=== PATIENT | male | born 1965 | race Caucasian/White ===

== ENCOUNTER 2021-05-12 14:14 | Outpatient (CLI) | payer BC, SELFPAY ==
--- NOTE | ~2021-05-12 | XR_ITS ---
XR cervical spine 4-5V 05/12/2021 15:33 Indication: Neck pain Procedure: 3 views cervical spine Comparison: No prior studies for comparison. Findings: Vertebral body heights are maintained. No fracture, subluxation or dislocation. No preverte bral soft tissue swelling. Lung apices are normal. There is mild multilevel uncinate degenerative cooper nge. Impression: 1: Mild cervical spondylosis. Reviewed, dictated and finalized at location A. AS MARKER Impression: 1: Mild cervical spondylosis.
--- NOTE | ~2021-05-12 | XR_ITS ---
EXAMINATION: XR abdomen obstructive series DATE: 05/12/2021 15:35 INDICATION: Lower quadrant pain TECHNIQUE: Supine and upright views of the abdomen. FINDINGS: No prior studies for comparison The visualized lung parenchyma is normal.. There is a nonobstructive bowel gas pattern. Gas and stool are seen throughout the colon to the level of the rectum. There is no free air. IMPRESSION: 1. No acute abdominal abnormality. Reviewed, dictated and finalized at location A. 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
--- NOTE | ~2021-05-12 | XR_ITS ---
XR ankle LT min 3V 05/12/2021 15:34 Indication: Left ankle pain medially. Chronic. Procedure: 4 views of the left ankle Comparison: 4 views left ankle Findings: There is an osteochondral defect along the lateral margin of the talar dome. No acute fract ure or traumatic malalignment. No significant soft tissue abnormality. Moderate anterior soft tissue swelling. There are moderate degenerative changes of the ankle. Impression: 1: Moderate osteoarthritis of the left ankle with osteochondral defect lateral margin of the talar do me. Reviewed, dictated and finalized at location A. GER RELIABILITY Impression: 1: Moderate osteoarthritis of the left ankle with osteochondral defect lateral margin of the talar dome.
[2021-05-12 14:48] LABS: Basophils Absolute Auto 0.08 K/mm3 (0.00-0.10); Basophils Percent Auto 0.9 % (0.0-1.0); Eosinophils Absolute Auto 0.39 K/mm3 (0.02-0.50); Eosinophils Percent Auto 4.6 % (1.0-6.0); Hematocrit 51.4 % (40.0-54.0); Hemoglobin 17.3 g/dL (14.0-18.0); Immature Granulocyte Absolute 0.02 K/mm3 (0.00-0.00); Immature Granulocyte Percent A 0.2 % (0.0-0.0); Lymphocytes Absolute Auto 2.88 K/mm3 (1.10-4.50); Lymphocytes Percent Auto 34.2 % (18.0-42.0); Mean Corpuscular HGB Conc 33.7 g/dL (32.0-36.0); Mean Corpuscular Hemoglobin 32.9 pg (27.0-31.0); Mean Corpuscular Volume 97.7 fL (78.0-102.0); Mean Platelet Volume 9.7 fl (8.7-11.0); Monocytes Absolute Auto 0.54 K/mm3 (0.10-0.90); Monocytes Percent Auto 6.4 % (2.0-11.0); Neutrophils Absolute Auto 4.5 K/mm3 (1.7-7.2); Neutrophils Percent Auto 53.7 % (50.0-70.0); Platelet Count Result 338 K/mm3 (150-420); Red Blood Count 5.26 M/mm3 (4.70-6.10); Red Cell Distribution Width 12.9 % (11.6-14.4); White Blood Count 8.4 K/mm3 (4.8-10.8)
[2021-05-12 15:15] LABS: Alanine Aminotransferase 67 U/L (16-63); Albumin Level 4.2 g/dL (3.4-5.0); Alkaline Phosphatase 91 U/L (46-116); Amylase 49 U/L (25-115); Anion Gap 11 mmol/L (8-16); Aspartate Amino Transferase 46 U/L (15-37); Bilirubin,Total 0.4 mg/dL (0.00-1.00); Blood Urea Nitrogen 14 mg/dL (7-18); Calcium 9.2 mg/dL (8.5-10.1); Carbon Dioxide 28 mmol/L (21-32); Chloride 101 mmol/L (98-108); Estimated Glomerular Filt Rate > 60; Glucose 140 mg/dL (70-99); Lipase 98 U/L (73-393); Osmolality Calculated 292 mOsm/kg (285-295); Potassium 4.7 mmol/L (3.5-5.1); Sodium 140 mmol/L (136-145); Total Protein 7.8 g/dL (6.4-8.2)
[2021-05-12 15:53] LABS: Prostate Specific Antigen 1.1 ng/mL (< OR = 4.0)
[2021-05-13 18:07] LABS: Hemoglobin A1C 6.1 % (<5.7)
== END 2021-05-12 14:15 | disposition home or self-care (01) ==
LOC: CHSLAB 14:18
PROVIDERS: PCP Family Medicine; Visit Provider Family Medicine
DX: R10.32 Left lower quadrant pain (principal); Z12.5 Encounter for screening for malignant neoplasm of prostate; M25.572 Pain in left ankle and joints of left foot; M54.2 Cervicalgia
CPT/HCPCS: 36415; 72050; 73610; 74019; 80053; 82150; 83036; 83690; 84153; 85025; G0103

== ENCOUNTER 2021-05-13 15:37 | Outpatient (CLI) | payer BC, SELFPAY ==
[2021-05-13 15:53] LABS: Add Urine Microscopic? NO; Appearance Urine Clear (Clear); Bilirubin Urine Negative (Negative); Blood Urine Negative (Negative); Color Urine Yellow (Yellow); Glucose Urine UA Negative (Negative); Ketones Urine Negative (Negative); Leukocyte Esterase Ur Negative (Negative); Nitrate Urine Negative (Negative); Protein Urine Negative (Negative); Specific Grav Ur >= 1.030 (1.010-1.020); Urobilinogen Urine 0.2 mg/dL (0.2-1.0); pH Urine 5.5 (5.0-8.0)
[2021-05-13 15:54] LABS: Occult Blood Negative (Negative)
== END 2021-05-13 15:38 | disposition home or self-care (01) ==
LOC: CHSLAB 15:38
PROVIDERS: PCP Family Medicine; Visit Provider Family Medicine
DX: R10.32 Left lower quadrant pain (principal); Z12.5 Encounter for screening for malignant neoplasm of prostate
CPT/HCPCS: 81003; 82272

== ENCOUNTER 2021-05-14 10:15 | Outpatient (CLI) | payer BC, SELFPAY ==
--- NOTE | ~2021-05-14 | CT_ITS ---
EXAMINATION: CT lung screening EXAM DATE: 05/14/2021 10:48 INDICATION: Personal history of tobacco use hx tobacco dependence, no chest complaints. Still smokes. TECHNIQUE: Spiral low dose CT of the chest without contrast. Axial, coronal and sagittal images were reviewed. The dose-length product (DLP) for this examination was 321.22 mGy-cm. The exposure was t ailored according to patient size (auto mA exposure control), and iterative reconstruction (ASIR) was used as additional dose reduction technique. There is no prior study for comparison. FINDINGS: There is mild emphysema. Tracheobronchial tree is patent. There is no mediastinal, helen r or axillary lymphadenopathy. There are no pleural or pericardial effusions. There is no pneumot horax. Heart normal in size. There is mild coronary arterial calcification, arterial sclerosis. U pper abdomen is unremarkable. There is thoracic spondylosis without osteoblastic or osteolytic lesi ons identified. IMPRESSION: Lung-RADS category 1, negative (<1%chance of malignancy); recommend continued LDCT screen ing in 1 year. > Reviewed, dictated and finalized at location B. SHER DIAL IMPRESSION: Lung-RADS category 1, negative (<1%chance of malignancy); recommend continued LDCT screening in 1 year. >
[2021-05-14 11:04] LABS: Cholesterol 297 mg/dL (0-200); HDL Direct 44 mg/dL (40-60); LDL Cholesterol Calculated 208 mg/dL (<130); Triglycerides 225 mg/dL (0-150)
== END 2021-05-14 10:16 | disposition home or self-care (01) ==
LOC: CHSIMG 10:16
PROVIDERS: PCP Family Medicine; Visit Provider Family Medicine
DX: Z12.2 Encounter for screening for malignant neoplasm of respiratory organs (principal); Z87.891 Personal history of nicotine dependence; Z13.220 Encounter for screening for lipoid disorders
CPT/HCPCS: 36415; 71271; 80061

== ENCOUNTER 2021-05-19 12:29 | Outpatient (CLI) | payer BC, SELFPAY ==
[2021-05-24 20:15] LABS: Hepatitis A Antibody IgM Nonreactive; Hepatitis B Core Antibody Nonreactive (Nonreactive); Hepatitis B Surface Antigen Nonreactive (Nonreactive); Hepatitis C Signal to Cutoff 0.04 ratio (<1.00); Hepatitis C Virus Antibody Nonreactive (Nonreactive)
== END 2021-05-19 12:30 | disposition home or self-care (01) ==
LOC: CHSLAB 12:31
PROVIDERS: PCP Family Medicine; Visit Provider Family Medicine
DX: R74.01 Elevation of levels of liver transaminase levels (principal)
CPT/HCPCS: 36415; 80074

== ENCOUNTER 2021-09-15 13:12 | Outpatient (CLI) | payer BC, SELFPAY ==
[2021-09-15 13:27] LABS: Add Urine Microscopic? YES; Appearance Urine Clear (Clear); Basophils Absolute Auto 0.09 K/mm3 (0.00-0.10); Bilirubin Urine Negative (Negative); Blood Urine 1+ (Negative); Color Urine Yellow (Yellow); Eosinophils Absolute Auto 0.49 K/mm3 (0.02-0.50); Eosinophils Percent Auto 5.2 % (1.0-6.0); Glucose Urine UA Negative (Negative); Hematocrit 48.9 % (40.0-54.0); Hemoglobin 16.6 g/dL (14.0-18.0); Immature Granulocyte Absolute 0.04 K/mm3 (0.00-0.00); Immature Granulocyte Percent A 0.4 % (0.0-0.0); Ketones Urine Negative (Negative); Leukocyte Esterase Ur Negative (Negative); Lymphocytes Absolute Auto 3.15 K/mm3 (1.10-4.50); Lymphocytes Percent Auto 33.3 % (18.0-42.0); Mean Corpuscular HGB Conc 33.9 g/dL (32.0-36.0); Mean Corpuscular Hemoglobin 32.8 pg (27.0-31.0); Mean Corpuscular Volume 96.6 fL (78.0-102.0); Mean Platelet Volume 9.7 fl (8.7-11.0); Monocytes Absolute Auto 0.67 K/mm3 (0.10-0.90); Monocytes Percent Auto 7.1 % (2.0-11.0); Nitrate Urine Negative (Negative); Platelet Count Result 344 K/mm3 (150-420); Protein Urine Negative (Negative); Red Blood Count 5.06 M/mm3 (4.70-6.10); Red Cell Distribution Width 12.6 % (11.6-14.4); Urobilinogen Urine 0.2 mg/dL (0.2-1.0); White Blood Count 9.5 K/mm3 (4.8-10.8)
[2021-09-15 13:33] LABS: Bacteria Urine None seen /hpf; Squamous Epithelial Cell Urine Rare /hpf (Few); WBC Urine None seen /hpf (0-3)
[2021-09-15 13:35] LABS: Hemoglobin A1C 6.2 % (<5.7)
[2021-09-15 13:52] LABS: Alanine Aminotransferase 49 U/L (16-63); Alkaline Phosphatase 113 U/L (46-116); Anion Gap 7 mmol/L (8-16); Aspartate Amino Transferase 45 U/L (15-37); Bilirubin,Total 0.5 mg/dL (0.00-1.00); Blood Urea Nitrogen 12 mg/dL (7-18); Calcium 9.2 mg/dL (8.5-10.1); Carbon Dioxide 30 mmol/L (21-32); Chloride 99 mmol/L (98-108); Cholesterol 183 mg/dL (0-200); Creatine Kinase 305 U/L (39-308); Estimated Glomerular Filt Rate > 60; Glucose 148 mg/dL (70-99); HDL Direct 40 mg/dL (40-60); LDL Cholesterol Calculated 97 mg/dL (<130); Osmolality Calculated 284 mOsm/kg (285-295); Potassium 3.7 mmol/L (3.5-5.1); Sodium 136 mmol/L (136-145); Thyroid Stimulating Hormone 30.98 uIU/mL (0.36-3.74); Total Protein 8.1 g/dL (6.4-8.2); Triglycerides 230 mg/dL (0-150)
[2021-09-15 17:42] LABS: Free T4 Free Thyroxine 0.44 ng/dL (0.76-1.46)
[2021-09-19 06:21] LABS: Thyroglobulin <0.1 ng/mL (2.8-40.9); Thyroglobulin Antibodies 3 IU/mL (<=1); Thyroid Peroxidase Antibodies 925 IU/mL (<9)
== END 2021-09-15 13:13 | disposition home or self-care (01) ==
LOC: CHSLAB 13:14
PROVIDERS: PCP Family Medicine; Visit Provider Family Medicine
DX: R22.0 Localized swelling, mass and lump, head (principal); R53.83 Other fatigue; R73.9 Hyperglycemia, unspecified; E78.2 Mixed hyperlipidemia; R94.6 Abnormal results of thyroid function studies
CPT/HCPCS: 36415; 80053; 80061; 81001; 82550; 83036; 84432; 84439; 84443; 85025; 86376; 86800

== ENCOUNTER 2021-09-17 10:04 | Outpatient (CLI) | payer BC, SELFPAY ==
--- NOTE | ~2021-09-17 | US_ITS ---
EXAMINATION: US abdomen limited DATE: 09/17/2021 10:28 INDICATION: Unspecified abdominal pain. Epigastric lump. TECHNIQUE: Multiple grayscale and Doppler ultrasound images of the abdomen were obtained. COMPARISON: Chest CT 05/14/2021 FINDINGS: In the epigastric region, there is a 13 mm hyperechoic shadowing subcutaneous mass. The vis ualized portions of the head and body of the pancreas are normal. There is diffuse hepatic steatosis. There is normal flow in main portal vein. The gallbladder is normal in size. No gallstones or gallbl adder wall thickening. There was no sonographic Lu sign. The common duct is normal and measures 3 mm. IMPRESSION: 1. Diffuse hepatic steatosis. 2. 13 mm subcutaneous mass in the epigastric region, which correlates with a curvilinear foreign body by CT. Reviewed, dictated and finalized at location B. IMPRESSION: 1. Diffuse hepatic steatosis. 2. 13 mm subcutaneous mass in the epigastric region, which correlates with a cu rvilinear foreign body by CT.
== END 2021-09-17 10:05 | disposition home or self-care (01) ==
LOC: CHSIMG 10:05
PROVIDERS: PCP Family Medicine; Visit Provider Family Medicine
DX: R10.9 Unspecified abdominal pain (principal)
CPT/HCPCS: 76705

== ENCOUNTER 2021-10-08 10:32 | Outpatient (CLI) | payer BC, SELFPAY ==
--- NOTE | ~2021-10-08 | US_ITS ---
EXAMINATION: US soft tissue head and neck DATE: 10/08/2021 10:49 INDICATION: Localized swelling, mass and lump at the right neck TECHNIQUE: Multiple grayscale and Doppler ultrasound images of the region of concern at the infraclav icular right side of the neck were obtained. COMPARISON: None FINDINGS: There is a 1.7 x 1.5 x 1.0 cm dumbbell shaped mass at the site of concern which appears isoechoic and with similar echotexture to the surrounding subcutaneous fat. The lesion appears equally distributed on both sides of a linear echogenic likely fascial plane passing through a 6 mm diameter defect in t he sagittal plane. No other abnormal masses or fluid collections identified. IMPRESSION: 1. Nonspecific 1.7 x 1.5 x 1.0 cm soft tissue mass at the region of concern, possibly a lipoma but wo uld recommend contrast-enhanced CT of the neck with a marker placed at the site of concern for more d efinitive determination. Reviewed, dictated and finalized at location A. IMPRESSION: 1. Nonspecific 1.7 x 1.5 x 1.0 cm soft tissue mass at the region of concern, po ssibly a lipoma but would recommend contrast-enhanced CT of the neck with a mar ker placed at the site of concern for more definitive determination.
== END 2021-10-08 10:33 | disposition home or self-care (01) ==
LOC: CHSIMG 10:33
PROVIDERS: PCP Family Medicine; Visit Provider Family Medicine
DX: R22.0 Localized swelling, mass and lump, head (principal)
CPT/HCPCS: 76536

== ENCOUNTER 2021-11-25 10:04 | Outpatient (CLI) | payer BC, SELFPAY ==
--- NOTE | ~2021-11-25 | CT_ITS ---
EXAMINATION: CT soft tissue neck wo con DATE: 11/25/2021 10:29 INDICATION: Posterior neck lump reportedly in the region of C7. TECHNIQUE: Computed tomography (CT) of the neck was performed without intravenous contrast. Automated exposure control and iterative reconstruction technique were employed. The dose-length product was 5 36.13 mGy-cm. COMPARISON: Ultrasound dated 10/08/2021 FINDINGS: Visualized upper lungs are clear. Superior mediastinum is unremarkable with normal caliber thoracic a rch and no pathologically enlarged superior mediastinal lymphadenopathy. The thyroid and the lateral parotid and submandibular glands are normal. Subtle 1.7 x 1.4 x 1.2 cm homogeneously macroscopic fat attenuation lipoma which demonstrates identical dumbbell shape on coronal image and as seen on prior ultrasound where it passes across a small defect in the superficial fascial plane in the right infra- auricular region along the posterior margin of the parotid gland. No soft tissue masses identified al sebastian the posterior neck or upper chest. Small amount of atherosclerotic calcification at the right car otid bulb, minimal at the left carotid bulb. Visualized portions of the paranasal sinuses, bilateral mastoid air cells and middle ear cavities are clear. Moderate mid cervical spondylosis. IMPRESSION: 1. No abnormal masses, fluid collections or other correlate for reported posterior neck lump. 2. 1.7 x 1.4 x 1.2 cm right infraclavicular lipoma corresponding to the lesion identified on ultrasou nd from one month prior. Reviewed, dictated and finalized at location A. IMPRESSION: 1. No abnormal masses, fluid collections or other correlate for reported portfolio management marketing ior neck lump. 2. 1.7 x 1.4 x 1.2 cm right infraclavicular lipoma corresponding to the lesion identified on ultrasound from one month prior.
== END 2021-11-25 10:05 | disposition home or self-care (01) ==
LOC: CHSIMG 10:06
PROVIDERS: PCP Family Medicine; Visit Provider Family Medicine
DX: H53.9 Unspecified visual disturbance (principal); R22.0 Localized swelling, mass and lump, head
CPT/HCPCS: 70490

== ENCOUNTER 2021-12-02 15:00 | Outpatient (CLI) | payer BC, SELFPAY ==
[2021-12-02 15:20] LABS: Basophils Absolute Auto 0.07 K/mm3 (0.00-0.10); Basophils Percent Auto 0.7 % (0.0-1.0); Eosinophils Absolute Auto 0.51 K/mm3 (0.02-0.50); Eosinophils Percent Auto 4.9 % (1.0-6.0); Hematocrit 50.4 % (40.0-54.0); Hemoglobin 17.2 g/dL (14.0-18.0); Immature Granulocyte Absolute 0.05 K/mm3 (0.00-0.00); Immature Granulocyte Percent A 0.5 % (0.0-0.0); Lymphocytes Absolute Auto 3.34 K/mm3 (1.10-4.50); Lymphocytes Percent Auto 32.3 % (18.0-42.0); Mean Corpuscular HGB Conc 34.1 g/dL (32.0-36.0); Mean Corpuscular Hemoglobin 32.3 pg (27.0-31.0); Mean Corpuscular Volume 94.7 fL (78.0-102.0); Mean Platelet Volume 9.9 fl (8.7-11.0); Monocytes Absolute Auto 0.72 K/mm3 (0.10-0.90); Neutrophils Absolute Auto 5.6 K/mm3 (1.7-7.2); Neutrophils Percent Auto 54.6 % (50.0-70.0); Platelet Count Result 355 K/mm3 (150-420); Red Blood Count 5.32 M/mm3 (4.70-6.10); Red Cell Distribution Width 12.6 % (11.6-14.4); White Blood Count 10.3 K/mm3 (4.8-10.8)
[2021-12-02 16:00] LABS: Anion Gap 8 mmol/L (8-16); Blood Urea Nitrogen 11 mg/dL (7-18); Calcium 9.4 mg/dL (8.5-10.1); Carbon Dioxide 28 mmol/L (21-32); Chloride 102 mmol/L (98-108); Estimated Glomerular Filt Rate > 60; Glucose 154 mg/dL (70-99); Osmolality Calculated 288 mOsm/kg (285-295); Potassium 3.8 mmol/L (3.5-5.1); Sodium 138 mmol/L (136-145)
== END 2021-12-02 15:01 | disposition home or self-care (01) ==
LOC: CHSLAB 15:03
PROVIDERS: PCP Family Medicine; Visit Provider Family Medicine
DX: E03.9 Hypothyroidism, unspecified (principal)
CPT/HCPCS: 36415; 80048; 84443; 85025

== ENCOUNTER 2022-03-12 12:17 | Outpatient (CLI) | payer BC, SELFPAY ==
[2022-03-12 12:29] LABS: Basophils Absolute Auto 0.08 K/mm3 (0.00-0.10); Basophils Percent Auto 0.6 % (0.0-1.0); Eosinophils Absolute Auto 0.55 K/mm3 (0.02-0.50); Eosinophils Percent Auto 4.5 % (1.0-6.0); Hematocrit 47.4 % (40.0-54.0); Hemoglobin 16.2 g/dL (14.0-18.0); Immature Granulocyte Absolute 0.09 K/mm3 (0.00-0.00); Immature Granulocyte Percent A 0.7 % (0.0-0.0); Lymphocytes Absolute Auto 3.22 K/mm3 (1.10-4.50); Lymphocytes Percent Auto 26.1 % (18.0-42.0); Mean Corpuscular HGB Conc 34.2 g/dL (32.0-36.0); Mean Corpuscular Hemoglobin 32.2 pg (27.0-31.0); Mean Corpuscular Volume 94.2 fL (78.0-102.0); Mean Platelet Volume 9.3 fl (8.7-11.0); Monocytes Absolute Auto 0.86 K/mm3 (0.10-0.90); Neutrophils Absolute Auto 7.5 K/mm3 (1.7-7.2); Neutrophils Percent Auto 61.1 % (50.0-70.0); Platelet Count Result 377 K/mm3 (150-420); Red Blood Count 5.03 M/mm3 (4.70-6.10); Red Cell Distribution Width 12.5 % (11.6-14.4); White Blood Count 12.3 K/mm3 (4.8-10.8)
[2022-03-12 12:59] LABS: Alanine Aminotransferase 41 U/L (16-63); Albumin Level 3.9 g/dL (3.4-5.0); Alkaline Phosphatase 121 U/L (46-116); Anion Gap 7 mmol/L (8-16); Aspartate Amino Transferase 35 U/L (15-37); Bilirubin,Total 0.4 mg/dL (0.00-1.00); Blood Urea Nitrogen 10 mg/dL (7-18); Carbon Dioxide 30 mmol/L (21-32); Chloride 102 mmol/L (98-108); Estimated Glomerular Filt Rate > 60; Glucose 129 mg/dL (70-99); Osmolality Calculated 289 mOsm/kg (285-295); Potassium 3.9 mmol/L (3.5-5.1); Sodium 139 mmol/L (136-145); Total Protein 7.6 g/dL (6.4-8.2)
== END 2022-03-12 12:18 | disposition home or self-care (01) ==
LOC: CHSLAB 12:19
PROVIDERS: PCP Family Medicine; Visit Provider Family Medicine
DX: I10 Essential (primary) hypertension (principal)
CPT/HCPCS: 36415; 80053; 85025

== ENCOUNTER 2022-08-11 17:11 | Outpatient (CLI) | payer BC, SELFPAY ==
[2022-08-11 17:28] LABS: Basophils Absolute Auto 0.07 K/mm3 (0.00-0.10); Basophils Percent Auto 0.8 % (0.0-1.0); Eosinophils Absolute Auto 0.36 K/mm3 (0.02-0.50); Eosinophils Percent Auto 4.4 % (1.0-6.0); Hematocrit 47.4 % (40.0-54.0); Hemoglobin 16.3 g/dL (14.0-18.0); Immature Granulocyte Absolute 0.02 K/mm3 (0.00-0.00); Immature Granulocyte Percent A 0.2 % (0.0-0.0); Lymphocytes Absolute Auto 2.99 K/mm3 (1.10-4.50); Lymphocytes Percent Auto 36.2 % (18.0-42.0); Mean Corpuscular HGB Conc 34.4 g/dL (32.0-36.0); Mean Corpuscular Hemoglobin 32.5 pg (27.0-31.0); Mean Corpuscular Volume 94.4 fL (78.0-102.0); Mean Platelet Volume 9.5 fl (8.7-11.0); Monocytes Absolute Auto 0.56 K/mm3 (0.10-0.90); Monocytes Percent Auto 6.8 % (2.0-11.0); Neutrophils Absolute Auto 4.3 K/mm3 (1.7-7.2); Neutrophils Percent Auto 51.6 % (50.0-70.0); Platelet Count Result 347 K/mm3 (150-420); Red Blood Count 5.02 M/mm3 (4.70-6.10); Red Cell Distribution Width 12.8 % (11.6-14.4); White Blood Count 8.3 K/mm3 (4.8-10.8)
[2022-08-11 18:28] LABS: Anion Gap 7 mmol/L (8-16); Blood Urea Nitrogen 8 mg/dL (7-18); Carbon Dioxide 31 mmol/L (21-32); Chloride 102 mmol/L (98-108); Estimated Glomerular Filt Rate > 60; Glucose 149 mg/dL (70-99); Osmolality Calculated 291 mOsm/kg (285-295); Sodium 140 mmol/L (136-145); Thyroid Stimulating Hormone 0.54 uIU/mL (0.36-3.74)
[2022-08-12 09:26] LABS: Hemoglobin A1C 6.2 % (<5.7)
== END 2022-08-11 17:12 | disposition home or self-care (01) ==
LOC: CHSLAB 17:13
PROVIDERS: PCP Family Medicine; Visit Provider Family Medicine
DX: E03.9 Hypothyroidism, unspecified (principal); I10 Essential (primary) hypertension; R73.9 Hyperglycemia, unspecified
CPT/HCPCS: 36415; 80048; 83036; 84443; 85025

== ENCOUNTER 2025-02-16 12:39 | Emergency (ER) | payer BC, SELFPAY ==
--- NOTE | 2025-02-16 | CONSULT_PTH ---
PATIENT: Kervin Jacob LOC: [facility] U#:[id number] AGE/SX: 59/M ROOM: RE02/16/[address]: Nestor Russo MD : 1965 BED: DIS: 02/16/2025 SPEC #: [id number] RECD: 02/16/25 14:04 STATUS: CORIE REQ #: [id number] BG: 02/16/25 00:[address]: Nestor Russo DEPT: [facility] Consult RECD BY: Trisha Bullock MLT, ([facility]) ENTERED: 02/16/25 14:05 SP TYPE: Consult OTHR DR: Arnulfo Hurst MD Tissues: A - Peripheral Smear Procedures: Hematology Consult
--- NOTE | ~2025-02-16 | CT_ITS ---
Kervin Jacob EXAMINATION: CT abdomen pelvis w con COMPARISON: None HISTORY: LLQ pain, nausea, diarrhea x3 days; worsening today. TECHNIQUE: Axial images were obtained through the abdomen, pelvis post administration of IV contrast. Oral contrast was also administered. Coronal reconstruction images were obtained from the axial views. CT scan performed using dose optimization techniques including the following automated exposure control; adjustment of mA and/or kV; use of iterative reconstruction technique. Automatic exposure control was used to reduce radiation dose. Permanent radiation dose record is archived to PACS. FINDINGS: CT abdomen: LUNG BASES: The lung bases are clear. The visualized portions of the heart and pericardium are unremarkable. LIVER: Moderate hepatic steatosis. Portal vein patent. No intrahepatic biliary duct dilatation. SPLEEN: Unremarkable. KIDNEYS: Right Kidney: Unremarkable. No calculi. No hydronephrosis. Left Kidney: Unremarkable. No calculi. No hydronephrosis ADRENAL GLANDS: Unremarkable. PANCREAS: Unremarkable. GALLBLADDER/BILIARY: Unremarkable. No biliary dilatation. STOMACH AND ESOPHAGUS: Visualized stomach and esophagus within normal limits. BOWEL/MESENTERY: Moderate fecal content, no colitis or diverticulitis. Appendix normal. Mesentery normal. Small bowel normal. ADENOPATHY/RETROPERITONEUM: No lymphadenopathy. AORTA/VASCULATURE: Mild ectasia of the aorta with atherosclerotic changes. FREE FLUID OR FREE AIR: None. CT pelvis: SOLID ORGANS/REPRODUCTIVE: Prostate prominent, correlate with PSA. BLADDER: Within normal limits. OSSEOUS STRUCTURES: No acute osseous abnormality.No suspicious lesions. OVERLYING SOFT TISSUES: Small bilateral fat-containing inguinal hernia. IMPRESSION: 1. No etiology identified to explain the patient's symptoms. Follow-up suggested if symptoms persist. Reviewed, dictated and finalized at location A. IMPRESSION: 1. No etiology identified to explain the patient's symptoms. Follow-up suggeste d if symptoms persist.
[2025-02-16 12:39] VITALS: BP 152/109; PULSE 100; RESP 18; TEMP 37.1; O2SAT 100
--- NOTE | 2025-02-16 12:57 | ED_ITS ---
HPI - Abdominal Pain General Chief Complaint: Abdominal Pain Stated Complaint: abdominal pain Time Seen by Provider: 02/16/25 12:51 Source: patient Mode of arrival: ambulatory Limitations: no limitations History of Present Illness HPI narrative: Patient is a 59-year-old male with left lower quadrant abdominal pain for the past 3 days. He has associated nausea and diarrhea. He has general malaise and aches and pains of not feeling well. No blood in the stool. MD elicited complaint: abdominal pain Pertinent past history: other (Colonoscopy with polyps) Onset (ago): day(s) (3) Pain Consistency: constant Location: LLQ Severity: mild Pain scale (0-10): 3 Quality: cramping and sharp Radiation: none Migration to: no migration Exacerbating factors: nothing Relieving factors: nothing Context: confirms other (Patient has left lower quadrant abdominal pain with nausea and diarrhea for the past 3 days) Associated symptoms: nausea and diarrhea Treatments prior to arrival: other (Imodium) Related Data Allergies Allergy/AdvReac Type Severity Reaction Status Date / Time No Known Allergies Allergy Verified 02/16/25 12:54 Review of Systems 2 Review of Systems: All systems reviewed & are unremarkable except as noted in HPI and below Constitutional: Constitutional: Reports no additional constitutional complaints Eyes: Eyes: Reports no additional eye complaints ENT: Reports system reviewed and no additional complaints, except as documented Cardiovascular: Cardiovascular: Reports no additional cardiovascular complaints Respiratory: Respiratory: Reports no additional respiratory complaints Gastrointestinal: Gastrointestinal: Reports no additional gastrointestinal complaints Genitourinary: Genitourinary: Reports no additional male genitourinary complaints Musculoskeletal: Musculoskeletal: Reports no additional musculoskeletal complaints Integumentary/Breasts: Skin/Breast: Reports system reviewed and no additional complaints, except as docu Neurologic: Reports system reviewed and no additional complaints, except as documented Psychiatric: Psychiatric: Reports no additional psychiatric complaints Endocrine: Endocrine: Reports no additional endocrine complaints Hematologic/Lymphatic: Hematologic/Lymphatic: Reports no additional hematologic/lymphatic complaints Allergic/Immunologic: Allergic/Immunologic: Reports no additional allergic/immunologic complaints Exam 2 Const: General: ill appearing Nutritional Appearance: well nourished O rientation/consciousness: patient oriented x3 Limitations: no limitations HENMT: Head: normal to inspection Ears: external ears normal F jorge/Nose/Sinus: Normal external nose present Eyes: Conjunctivae: conjunctivae normal Pupils: Equal, round and reactive pupils present EOM: EOMs intact bilaterally Neck: Neck: normal visual inspection Chest: Chest palpation & inspection: normal inspection of the chest Resp: Effort & Inspection: normal respiratory effort and not labored A uscultation: clear to auscultation bilaterally and no crackles Cardio: Rate: regular rate Rhythm: regular rhythm Heart sounds: no murmurs GI: Inspection: non-distended GI Palp: Yes Soft to palpation, Yes Tenderness to palpation present (GI) (Left lower quadrant), No Guarding due to palpation present (GI), No Rigid due to palpation, No Hernia present, No Palpable mass present and No Rebound tenderness present Auscultation: H yperactive bowel sounds present : General: Yes bladder normal to palpation Back/Spine/Pelvis: Back: no CVA tenderness Skin: General skin exam: normal color Rashes: no rashes Wounds: no wounds Neuro: General: patient oriented x3, moves all extremities and no meningeal signs Extrem: General: normal to inspection Psych: Mental Status: mental status grossly normal Affect: normal affect Attitude: cooperative Course Vital Signs Vital signs: Vital Signs Temperature 37.1 C 02/16/25 12:39 Pulse Rate 100 02/16/25 12:39 Respiratory Rate 18 02/16/25 12:39 Blood Pressure 152/109 H 02/16/25 12:39 Pulse Oximetry 100 02/16/25 12:39 Oxygen Delivery Room Air 02/16/25 12:39 Temperature 37.1 C 02/16/25 12:39 Pulse Rate 100 02/16/25 12:39 Respiratory Rate 18 02/16/25 12:39 Blood Pressure 152/109 H 02/16/25 12:39 Pulse Oximetry 100 02/16/25 12:39 Oxygen Delivery Room Air 02/16/25 12:39 MDM - Abdominal Pain MDM Narrative Medical decision making narrative: Patient is a 59-year-old male with left lower quadrant abdominal pain for the past [address] scan. Urine. Lab Data Attestation: I reviewed the patient's lab results. 02/16/25 13:31 02/16/25 13:31 Labs: Lab Results 02/16/25 02/16/25 Range/Units 13:31 14:11 WBC 3.2 L (4.8-10.8) K/mm3 RBC 5.51 (4.70-6.10) M/mm3 Hgb 17.3 (14.0-18.0) g/dL Hct 50.7 (40.0-54.0) % MCV 92.0 (78.0-102.0) fL MCH 31.4 H (27.0-31.0) pg MCHC 34.1 (32-36) g/dL RDW 12.7 (11.6-14.4) % Plt Count 231 (150-420) K/mm3 MPV 9.6 (8.7-11.0) fl Immature Gran % (Auto) Not Reportable Neut % (Auto) Not Reportable Lymph % (Auto) Not Reportable Wolfe % (Auto) Not Reportable Eos % (Auto) Not Reportable Baso % (Auto) Not Reportable Lymph # (Auto) Not Reportable Wolfe # (Auto) Not Reportable Eos # (Auto) Not Reportable Baso # (Auto) Not Reportable Abs Immat Gran (auto) Not Reportable Absolute Neuts (auto) Not Reportable Absolute Nucleated RBC Not Reportable Total Counted 100 Neutrophils % (Manual) 39 L (46-73) % Band Neutrophils % 0 (0-6) % Lymphocytes % (Manual) 50 H (18-44) % Monocytes % (Manual) 8 (3-9) % Eosinophils % (Manual) 3 (1-6) % Nucleated RBC % Not Reportable Abs Neuts (Manual) 1.24 L (1.3-6.7) K/mm3 Abs Lymphs (Manual) 1.60 (1.1-4.5) K/mm3 Abs Monocytes (Manual) 0.25 (0.1-0.90) K/mm3 Absolute Eos (Manual) 0.09 (0.02-0.50) K/mm3 Platelet Estimate Adequate (Adequate) Schistocytes Not Reportable PT 10.2 (9.50-12.1) Seconds INR 0.9 APTT 29.1 (23.9-30.70) Sec Sodium 137 (137-145) mmol/L Potassium 3.8 (3.4-5.0) mmol/L Chloride 98 (98-107) mmol/L Carbon Dioxide 28 (22-30) mmol/L Anion Gap 11 (4-12) mmol/L BUN 12 (9-20) mg/dL Creatinine 1.05 (0.7-1.3) mg/dL Estim Creat Clear Calc 84 ml/min Estimated GFR > 60 (59 - ) Glucose 107 (65-110) mg/dL Calculated Osmolality 283 L (285-295) mOsm/kg Lactic Acid 1.4 (0.4-2.0) mmol/L Calcium 9.4 (8.4-10.2) mg/dL Total Bilirubin 0.5 (0.2-1.3) mg/dL AST 56 (17-59) U/L ALT 48 (6-50) U/L Alkaline Phosphatase 88 (38-126) U/L Total Protein 9.1 H (6.3-8.2) g/dL Albumin 4.6 (3.5-5.1) g/dL Lipase 147 (23-300) U/L Urine Color Light yellow (Yellow) Urine Appearance Clear (Clear) Urine pH 6.0 (5.0-8.0) Ur Specific Lawley 1.010 (1.010-1.020) Urine Protein Negative (Negative) Urine Glucose (UA) Negative (Negative) Urine Ketones Negative (Negative) Ur Blood (Man) 1+ H (Negative) Urine Nitrate Negative (Negative) Urine Bilirubin Negative (Negative) Urine Urobilinogen 0.2 (0.2-1.0) mg/dL Leukocyte Esterase Rfl Negative (Negative) BALDOMERO/UL Urine RBC 0-2 (0-2) /hpf Urine WBC None seen (0-3) /hpf Urine Bacteria Rare (None) /hpf Imaging Data Attestation: I personally reviewed and interpreted this imaging study as follows: Radiologist's impression: ITS Impressions Abdomen/Pelvis CT 02/16/25 14:42 IMPRESSION: 1. No etiology identified to explain the patient's symptoms. Follow-up suggested if symptoms persist. Discharge Plan Discharge Clinical Impression: Gastroenteritis Patient Disposition: Home Condition: Stable Instructions: Gastroenteritis (DC), Abdominal Pain (ED) Patient Language: [place] Follow-up/Referrals: Arnulfo Hurst MD [Primary Care Provider, Internal Medicine] Time of Disposition: 15:03
[2025-02-16] MEDS: SODIUM CHLORIDE 0.9% IV 1,000 ML 999 ML IV CONT (13:37)
[2025-02-16 13:44] LABS: Hematocrit 50.7 % (40.0-54.0); Hemoglobin 17.3 g/dL (14.0-18.0); Mean Corpuscular HGB Conc 34.1 g/dL (32-36); Mean Corpuscular Hemoglobin 31.4 pg (27.0-31.0); Mean Corpuscular Volume 92.0 fL (78.0-102.0); Platelet Count Result 231 K/mm3 (150-420); Red Blood Count 5.51 M/mm3 (4.70-6.10); White Blood Count 3.2 K/mm3 (4.8-10.8)
[2025-02-16 13:57] LABS: Lipase 147 U/L (23-300)
[2025-02-16 13:59] LABS: Alanine Aminotransferase 48 U/L (6-50); Albumin Level 4.6 g/dL (3.5-5.1); Alkaline Phosphatase 88 U/L (38-126); Anion Gap 11 mmol/L (4-12); Aspartate Amino Transferase 56 U/L (17-59); Bilirubin,Total 0.5 mg/dL (0.2-1.3); Blood Urea Nitrogen 12 mg/dL (9-20); Calcium 9.4 mg/dL (8.4-10.2); Carbon Dioxide 28 mmol/L (22-30); Chloride 98 mmol/L (98-107); Estimated CRCL calculation 84 ml/min; Estimated Glomerular Filt Rate > 60; Glucose 107 mg/dL (65-110); INR 0.9; Osmolality Calculated 283 mOsm/kg (285-295); Partial Thromboplastin Time 29.1 Sec (23.9-30.70); Potassium 3.8 mmol/L (3.4-5.0); Prothrombin Time 10.2 Seconds (9.50-12.1); Sodium 137 mmol/L (137-145); Total Protein 9.1 g/dL (6.3-8.2)
[2025-02-16 14:03] LABS: Band Neutrophils Percent 0 % (0-6); Eosinophils Absolute Manual 0.09 K/mm3 (0.02-0.50); Eosinophils Percent Manual 3 % (1-6); Lymphocytes Absolute Manual 1.60 K/mm3 (1.1-4.5); Lymphocytes Percent Manual 50 % (18-44); Monocytes Absolute Manual 0.25 K/mm3 (0.1-0.90); Monocytes Percent Manual 8 % (3-9); Neutrophils Absolute Manual 1.24 K/mm3 (1.3-6.7); Neutrophils Percent Manual 39 % (46-73); Total Cells Counted 100
[2025-02-16 14:15] LABS: Add Urine Microscopic? YES; Appearance Urine Clear (Clear); Glucose Urine UA Negative (Negative); Leukocyte Esterase Ur Negative LEU/UL (Negative); Nitrate Urine Negative (Negative); Specific Grav Ur 1.010 (1.010-1.020)
--- NOTE | 2025-02-16 15:23 | PC.NURSE ---
ERP aware of pt's vital signs. No new orders.
[2025-02-16 15:24] VITALS: BP 147/112; PULSE 93; RESP 16; TEMP 36.6; O2SAT 98
[2025-02-17 14:40] LABS: Prostate Specific Antigen 0.9 ng/mL (< OR = 4.0)
== END 2025-02-16 15:24 | disposition home or self-care (01) ==
PROVIDERS: Emergency Provider Emergency Medicine; PCP Family Medicine
DX: K52.9 Noninfective gastroenteritis and colitis, unspecified (principal)
CPT/HCPCS: 36415; 74177; 80053; 81001; 83605; 83690; 84153; 85025; 85610; 85730; 96360; 99284; G0103; J7030; Q9967